=== PATIENT | female | born 1985 | race Caucasian/White ===

== ENCOUNTER 2016-11-15 14:45 | Emergency (ER) | payer OTHER ==
[~2016-11-15] VITALS: Ht 160 cm; Wt 67.0 kg
[~2016-11-15 14:45] MED LIST: IBUP-1542 PO
[2016-11-15 14:49] VITALS: Ht 160 cm; Wt 67.0 kg
[2016-11-15] MEDS ORDERED: ELIM TOP (15:09)
--- NOTE | 2016-11-15 15:53 | ERD ---
ER Documentation Chief Complaint Date/Time DATE: 11/15/16 TIME: 15:51 Chief Complaint RASH X 2 WEEKS HPI This is a 31-year-old female presenting to the emergency department complaining of a itchy rash for the past 2 weeks which has been getting worse. Patient locates the itchiness mostly on her hands and arms. She states that it is becoming severe. She denies any chest pain, shortness of breath, wheezing. She denies any recent traveling or using new products. Patient states that her boyfriend is starting to develop the same symptoms and signs. ROS All systems reviewed and are negative except as per history of present illness. Medications Home Meds Active Scripts Permethrin* (Elimite*) 5% Cr, 1 APPLIC TOP ONCE, #60 TUB Prov:ALAN CAMILO PA-C 11/15/16 Ibuprofen* (Motrin*) 600 Mg Tab, 600 MG PO Q6H Y for PAIN AND OR ELEVATED TEMP, #30 TAB Prov:PHOENIX ECHEVARRIA NP 06/02/16 PMhx/Soc Hx Alcohol Use: Yes Hx Substance Use: Yes Hx Tobacco Use: Yes Physical Exam Vitals Vital Signs Date Time Temp Pulse Resp B/P Pulse Ox O2 Delivery O2 Flow Rate FiO2 11/15/16 14:49 98.4 68 18 124/68 Physical Exam General: WD/WN, in no apparent distress, non-toxic appearing HENT: NC/AT Eyes: Conjunctiva normal Neck: Supple Pulm: Clear to auscultation, normal labored breathing; no wheezing/rales/ rhonchi heard CV: Good capillary refill GI: Non-distended, no guarding Back: No masses Ext: No clubbing, cyanosis, or edema Neuro: Moves on all fours Skin: Erythematous papules throughout arms and hands, linear burrowing on hand Psych: Normal mood Procedures/MDM This is a 31-year-old female presenting to the emergency department with a rash for the past 2 weeks which is most consistent with scabies. There was no evidence of secondary cellulitis. Patient appears well with stable vital signs. She is suitable to discharge home with prescription for permethrin. I discussed the follow-up with primary care physician. Discussed return to the ER for any worsening signs or symptoms. She understands and agrees with plan Departure Diagnosis: Primary Impression: Scabies Condition: Stable Patient Instructions: Scabies Additional Instructions: FOLLOW UP WITH YOUR PRIMARY CARE PHYSICIAN TOMORROW.Return to this facility if you are not improving as expected. Take all medicines as directed. Return to this facility if you are not improving as expected. ALAN CAMILO PA-C November 15, 2016 15:53
== END 2016-11-15 15:14 | disposition home or self-care (01) ==
LOC: E/R 14:45
DX: B86 Scabies (principal); Z87.891 Personal history of nicotine dependence
CPT/HCPCS: 99283

== ENCOUNTER 2018-08-07 20:29 | Emergency (ER) | payer SELFPAY ==
[~2018-08-07] VITALS: Ht 180.3 cm; Wt 68.2 kg
[~2018-08-07 20:29] MED LIST changes: +ALBU8.5H8 INH; +AMOX500C2 PO; +AZIT250T PO; +ELIM TOP; +GUAI473L22 PO
[2018-08-07 20:45] VITALS: BP 137/79; PULSE 109; RESP 18; Ht 180.3 cm; Wt 68.2 kg
== END 2018-08-08 00:45 | disposition left against medical advice (07) ==
LOC: FTE 20:29
DX: Z53.21 Procedure and treatment not carried out due to patient leaving prior to being seen by health care provider (principal)

== ENCOUNTER 2018-08-09 00:02 | Emergency (ER) | payer SELFPAY ==
[~2018-08-09] VITALS: Ht 180.3 cm; Wt 68.7 kg
[2018-08-09 00:10] VITALS: BP 137/76; PULSE 100; RESP 19; Ht 180.3 cm; Wt 68.7 kg
== END 2018-08-09 00:30 | disposition left against medical advice (07) ==
LOC: FTE 00:02
DX: Z53.21 Procedure and treatment not carried out due to patient leaving prior to being seen by health care provider (principal)

== ENCOUNTER 2018-11-06 13:56 | Emergency (ER) | payer OTHER ==
[~2018-11-06] VITALS: Ht 172.7 cm; Wt 67.0 kg
[2018-11-06 14:17] VITALS: BP 120/61; PULSE 97; RESP 18; Ht 172.7 cm; Wt 67.0 kg
--- NOTE | 2018-11-06 16:55 | ERD ---
ER Documentation Chief Complaint Chief Complaint INTERMITTENT RIGHT ARM PAIN/WEAKNES X 1 WEEK, IMPROVES WITH WARM SHOWER ROS All systems reviewed and are negative except as per history of present illness. Medications Home Meds Active Scripts Guaifenesin-Codeine Phosphate* (Guaifenesin* AC Cough Syrup) 473 Ml Liquid, 5 ML PO QHS PRN for COUGH, #60 ML Prov:WILLIAM NGUYEN MD 06/01/18 Albuterol Sulfate* (Proair HFA*) 8.5 Gm Hfa.aer.ad, 2 PUFF INH Q4H PRN for WHEEZING AND SOB, #1 INHALER Prov:WILLIAM NGUYEN MD 06/01/18 Azithromycin* (Zithromax*) 250 Mg Tablet, 250 MG PO .ZPACK DIRECTED, #6 TAB TAKE 500 MG (2 TABS) THE FIRST DAY THEN 250 MG (1 TAB) DAYS 2-5 Prov:WILLIAM NGUYEN MD 06/01/18 Amoxicillin* (Amoxicillin*) 500 Mg Cap, 500 MG PO TID for 7 Days, CAP Prov:WILLIAM NGUYEN MD 06/01/18 Permethrin* (Elimite*) 5% Cr, 1 APPLIC TOP ONCE, #60 TUB Prov:ALAN CAMILO PA-C 11/15/16 Ibuprofen* (Motrin*) 600 Mg Tab, 600 MG PO Q6H PRN for PAIN AND OR ELEVATED TEMP, #30 TAB Prov:PHOENIX ECHEVARRIA NP 06/02/16 Allergies Allergies: Coded Allergies: No Known Allergy (Unverified , 06/01/18) PMhx/Soc Medical and Surgical Hx: pt denies Medical Hx, pt denies Surgical Hx History of Surgery: No Anesthesia Reaction: No Hx Neurological Disorder: No Hx Respiratory Disorders: No Hx Cardiac Disorders: No Hx Psychiatric Problems: No Hx Miscellaneous Medical Probl: No Hx Alcohol Use: No Hx Substance Use: No Hx Tobacco Use: Yes Smoking Status: Current every day smoker Physical Exam Vitals Vital Signs Date Temp Pulse Resp B/P (MAP) Pulse Ox O2 O2 Flow FiO2 Time Delivery Rate 11/06/18 97.9 97 18 120/61 100 14:17 (80) Physical Exam Const: No acute distress Head: Atraumatic Eyes: Normal Conjunctiva ENT: Normal External Ears, Nose and Mouth. Neck: Full range of motion. No meningismus. Resp: Clear to auscultation bilaterally Cardio: Regular rate and rhythm, no murmurs Abd: Soft, non tender, non distended. Normal bowel sounds Skin: No petechiae or rashes Back: No midline or flank tenderness Ext: No cyanosis, or edema Neur: Awake and alert Psych: Normal Mood and Affect Result Diagram: 11/06/18 1523 11/06/18 1523 Results 24 hrs Laboratory Tests Test 11/06/18 15:23 White Blood Count 4.6 10^3/ul Red Blood Count 4.39 10^6/ul Hemoglobin 12.8 g/dl Hematocrit 38.0 % Mean Corpuscular Volume 86.6 fl Mean Corpuscular Hemoglobin 29.2 pg Mean Corpuscular Hemoglobin Concent 33.7 g/dl Red Cell Distribution Width 11.4 % Platelet Count 195 10^3/UL Mean Platelet Volume 11.1 fl Immature Granulocytes % 0.200 % Neutrophils % 38.2 % Lymphocytes % 48.9 % Monocytes % 8.3 % Eosinophils % 3.5 % Basophils % 0.9 % Nucleated Red Blood Cells % 0.0 /100WBC Immature Granulocytes # 0.010 10^3/ul Neutrophils # 1.8 10^3/ul Lymphocytes # 2.3 10^3/ul Monocytes # 0.4 10^3/ul Eosinophils # 0.2 10^3/ul Basophils # 0.0 10^3/ul Nucleated Red Blood Cells # 0.0 10^3/ul Sodium Level 141 mmol/L Potassium Level 4.2 mmol/L Chloride Level 105 mmol/L Carbon Dioxide Level 31 mmol/L Anion Gap 5 Blood Urea Nitrogen 18 mg/dl Creatinine 0.76 mg/dl Est Glomerular Filtrat Rate mL/min > 60 mL/min Glucose Level 81 mg/dl Calcium Level 9.2 mg/dl Total Bilirubin 0.5 mg/dl Direct Bilirubin 0.00 mg/dl Indirect Bilirubin 0.5 mg/dl Aspartate Amino Transf (AST/SGOT) 107 IU/L Alanine Aminotransferase (ALT/SGPT) 113 IU/L Alkaline Phosphatase 66 IU/L Total Protein 6.7 g/dl Albumin 4.1 g/dl Globulin 2.60 g/dl Albumin/Globulin Ratio 1.57 DARREL ROCHA DO November 06, 2018 16:55
== END 2018-11-06 17:03 | disposition left against medical advice (07) ==
LOC: FTE 13:56
DX: M79.601 Pain in right arm (principal); F17.210 Nicotine dependence, cigarettes, uncomplicated
CPT/HCPCS: 80053; 85025; Z7502; 99283